=== PATIENT | female | born 2000 | race Caucasian/White ===

== ENCOUNTER 2024-04-15 08:26 | Day surgery (SDC) | payer OTHER, SELFPAY ==
[2024-04-14 08:08] VITALS: BMI 22.4
[2024-04-15] VITALS (7 sets, daily range): BP systolic 132–144; BP diastolic 74–88; PULSE 76–94; RESP 16–18; TEMP 36.7–37.1; O2SAT 96–98; BMI 22.4
[2024-04-15] MEDS: OXYMETAZOLINE NASAL SPRAY 30 ML 2 SPRAYS NASAL (09:22)
[2024-04-15] MEDS: SCOPOLAMINE 1 PATCH TOP (09:22)
[2024-04-15] MEDS: LACTATED RINGERS 1,000 ML 42 ML IV ×2 (09:22→11:51)
[2024-04-15] MEDS: ACETAMINOPHEN IV 1,000 MG/100 ML VIAL 400 MG IV (09:25)
[2024-04-15] MEDS: ALBUTEROL/IPRATROPIUM 3 ML AMPUL INH (09:26)
--- NOTE | 2024-04-15 09:34 | PM.PREOP ---
Pre-operative Note Interval Note History & Physical reviewed/Exam performed by Physician: Yes Changes to H&P: No
--- NOTE | 2024-04-15 09:35 | PM.OP.1 ---
Operative Date/Time/Diagnoses Date of procedure: 04/15/24 Time of procedure: 12:24 Pre-op diagnosis: 1. CRS with nasal polyposis 2. Nasal obstruction 3. Septal deviation 4. Inferior turbinate hypertrophy 5. Tamika bullosa bilaterally Post-op diagnosis: same Procedure & Clinicians Procedure: 1. Bilateral endoscopic maxillary antrostomy 2. Bilateral endoscopic anterior ethmoidectomy 3. Bilateral tamika bullosa resection 4.Septoplasty 5. Bilateral inferior turbinate reduction via intramural cautery Same procedure as scheduled: Yes Indications: 23 Year old with the above diagnoses incompletely managed with medical therapy presents for the above procedure. Following discussion of the material risks benefits complications and alternatives, the patient elected to proceed. Surgeon: Valdo Perry Click Yes if Unassisted: Yes Anesthesia Type: General and Local Operative Notes Findings: Large left posterior spur, polyps filling bilateral middle meatus and anterior ethmoids, polypoid bilateral middle turbinates with tamika bullosa, resected bilaterally Estimated Blood Loss (mL): 100 Procedure in detail: Following identification and confirmation of consent as well as preoperative Afrin nasal spray, the patient was brought to the operating room suite and placed in the supine position. General endotracheal anesthesia was administered. I infiltrated the septum widely bilaterally with 1% lidocaine 1 100,000 epinephrine followed by temporary packing with cotton with Afrin and 4% lidocaine. Following sterile prep and drape, the packing was removed and I performed a right luis-transfixion incision, elevated the right mucoperichondrial and mucoperiosteal flap. I disarticulated near the bony/cartilaginous junction and elevated the left mucoperiosteal flap. Deviated portions of the perpendicular plate of the ethmoid and vomer were resected. The residual quadrilateral cartilage was further straightened by trimming it inferiorly as well as reducing the maxillary crest. A 2 mm strip of cartilage paralleling the residual 1 cm dorsal strut was resected to further straighten the quadrilateral cartilage. The hemitransfixion incision was closed with interrupted 5 0 chromic followed by a running 4 0 plain gut mattress suture to reapproximate the septal flaps. The head of each inferior turbinate had been previously infiltrated with additional local anesthetic and a 25 gauge spinal needle was used to impale the length of the turbinate, with cautery on a setting of 15 activated on slow withdrawal over 2 passes each side. The turbinates were then outfractured. Under endoscopic guidance the posterior and anterior superior insertion of each middle turbinate was then infiltrated with additional local anesthetic via spinal needle. Cotton with 1:1000 epi was utilized intermittently throughout for hemostasis. Beginning on the left side, the middle turbinate was slightly medialized and the uncinate process was identified with uncinectomy performed via the backbiting forceps and the microdebrider. The natural os of the maxillary sinus was identified and enlarged posteriorly and inferiorly with forceps and the microdebrider. Anterior ethmoidectomy was performed by removing the ethmoid bulla with the microdebrider and multiple polyps. The polypoid middle turbinate was reduced and partially resected including the tamika bullosa. This procedure was repeated on the right side with nearly identical findings. Suction electrocautery was utilized for the middle turbinate stump and other oozing areas. At case completion, 20/1000th of an inch silastic splints were placed bilaterally, sutured anteriorly with a single 4 0 nylon. The procedure completed, sponge and needle counts were correct and the patient was extubated in the operating room and taken to recovery room in stable condition without known complication. Complications: none Post-operative Condition: stable Disposition: same day surgery Plan for aftercare: Nasal saline every hour while awake, begin irrigations t.i.d. tomorrow. Polysporin to the nostrils at all times, Tylenol alternating with Advil for pain control, oxycodone for breakthrough pain. Elevate head of bed, no nose blowing, no straining for 2 weeks. Ice directly under the nose on the upper lip has tolerated 24-48 hours at a minimum. Follow-up in 1 week for nasal splint removal.
--- NOTE | 2024-04-15 10:07 | SUR.OPER ---
Supine on padded OR bed, head on GEL DONUT , arms padded and tucked at sides, legs uncrossed, safety belt at thigh, tape over blanket over lower legs .
[2024-04-15] MEDS: LIDOCAINE 1% W/EPI 20 ML INJ (10:14)
[2024-04-15] MEDS: LIDOCAINE 4% SOLN 50 ML 20 ML TOP (10:15)
[2024-04-15] MEDS: [UNRECOGNIZED DRUG - OTHER] IRR (10:16)
[2024-04-15] MEDS: BACITRACIN 28 GM OINT 1 APPLIC TOP (10:17)
[2024-04-15] MEDS: OXYCODONE IR 5 MG TABLET PO ×2 (12:48→13:20)
[2024-04-15] MEDS: LORazepam 2 MG/ML INJ 0.5 MG IV ×2 (13:04→13:39)
--- NOTE | 2024-04-15 13:59 | SUR.PHASEII ---
Patients mother at bedside. Patient states she is feeling much better. Her pain is better than it was when she arrived to phase 2. Patient tolerating applesauce and water without difficulty.
== END 2024-04-15 15:20 | disposition home or self-care (01) ==
PROVIDERS: PCP Family Medicine; Referring Provider Otolaryngology; Visit Provider Otolaryngology
PROC: 09QM4ZZ Repair Nasal Septum, Percutaneous Endoscopic Approach (ICD-10-PCS; CPT 30520; principal; 2024-04-15 09:45)
DX: J34.2 Deviated nasal septum (principal); J34.89 Other specified disorders of nose and nasal sinuses; J32.4 Chronic pansinusitis; J34.3 Hypertrophy of nasal turbinates; J33.8 Other polyp of sinus
CPT/HCPCS: 31254; 31256; 30520; 30140; 31240; 81025; J0134; J0171; J0330; J1100; J2060; J2250; J2405; J2704; J3010